=== PATIENT | female | born 2000 | race Hispanic/Latino ===

== ENCOUNTER 2018-08-30 18:00 | Inpatient (IN) | payer OTHER ==
[2018-08-30] MEDS ORDERED: Diphenoxylate HCl/Atropine Tablet PO PRN ×2 (19:00→19:17)
[2018-08-30] MEDS ORDERED: Carboprost 250 MCG/ML AMP IM PRN (19:17)
[2018-08-30] MEDS ORDERED: Ibuprofen 800 MG TAB PO PRN (19:17)
[2018-08-30] MEDS ORDERED: Methylergonovine 0.2 MG/ML VIAL IM PRN (19:17)
[2018-08-30] MEDS ORDERED: Ondansetron PF 4 MG/2 ML Vial IVP PRN (19:17)
[2018-08-30] MEDS ORDERED: hydrALAZINE 20 MG/ML VIAL SLOW IVP PRN (19:17)
[2018-08-30] MEDS ORDERED: Promethazine HCl 25 MG/ML VIAL IM PRN (19:17)
[2018-08-30] MEDS ORDERED: Lidocaine 1% (PF) 30 ML VIAL SC PRN (19:17)
[2018-08-30] MEDS ORDERED: Misoprostol 200 MCG TAB PR PRN (19:17)
[2018-08-30] MEDS ORDERED: HYDROcodone/Acetaminophen 5/325 mg Tablet PO PRN (19:17)
[2018-08-30] MEDS ORDERED: Zolpidem Tartrate 5 MG TAB PO PRN (19:17)
[2018-08-30] MEDS ORDERED: Acetaminophen 500 MG TAB PO PRN (19:17)
[2018-08-30] MEDS ORDERED: NS w/ Oxytocin 10 units 500 ML IV SCH (19:30)
[2018-08-30 19:31] VITALS: BMI 40.0
[2018-08-30] MEDS: Lactated Ringer's 1,000 ML IV SCH (20:02)
[2018-08-30] MEDS: Misoprostol 100 MCG TAB VAG SCH (20:02)
[2018-08-30 20:06] LABS: Hemoglobin 10.8 g/dL (12.0-16.0); Mean Corpuscular HGB CONC 33.2 g/dL (32.0-36.0); Mean Corpuscular Volume 84.3 fL (78.0-98.0); Mean Platelet Volume 9.3 fL (7.4-10.4); Platelet Count 252 thou/uL (130-400); RBC Distribution Width 15.7 % (11.5-14.5); Red Blood Cell (RBC) Count 3.85 mill/uL (4.00-5.20); White Blood Cell (WBC) Count 13.2 thou/uL (4.8-10.8)
[2018-08-30 20:39] LABS: Syphilis Antibody Nonreactive (Nonreactive); Syphilis Antibody Index 0.03 S/CO (<1.00 Non-Reactive)
[2018-08-30 22:58] LABS: HBSAg Index 0.26 S/CO (0-0.99); Hep B Surf Ag Non-Reactive S/CO (NonReactive)
[2018-08-31] MEDS: Misoprostol 100 MCG TAB VAG SCH ×4 (00:25→10:39)
--- NOTE | 2018-08-31 11:32 | PDOC.LDHP ---
Labor and Delivery H&P Chief complaint: scheduled induction (for A2GDM) HPI: 17yo at 38w 0d by LMP here for IOL 2/2 A2GDM, slightly uncontrolled. Fastings have still been elevated in 110-120s despite 2 medications. Received 4 doses cytotec overnight, states feels strong cramping. Current gestational age (weeks): 38 Due date: 09/14/18 Dating criteria: last menstrual period Grav: 1 Para: 0 OB History Details: anemia on iron supp Current complications: gestational diabetes (on glyburide and metformin) Abnormal US findings: No Past Medical History: Obesity Current medications: pre-prasanna vitamins, iron, other (glyburide 2.5mg q hs, metformin 1000 mg po q hs) Previous surgical history: none Allergies/Adverse Reactions: Allergies Allergy/AdvReac Type Severity Reaction Status Date / Time cefprozil [From Cefzil] Allergy Verified 08/30/18 19:23 Social history: none - Physical Exam Vital signs reviewed and normal: yes General: NAD Heart: RRR Lungs: CTAB Abdomen: gravid Extremeties: no edema FHT: category 1 [place] contractions every: 2-3min - Vaginal Exam cm dilated: 1 Effacement: 25% Station: -3 (very posterior and firm, difficult to reach, cook balloon attempted to be placed multiple times without success) - OB Labs Blood type: O RH: positive Antibody Screen: negative HIV: negative RPR: negative HEPSAg: negative 1 hour GCT: positive 3 hour GTT: positive for GDM GBS: negative Urine drug screen: negative Rubella: non-immune - Assessment L&D Assessment: medically indicated induction - Plan Plan: admit to L&D, cervical ripening, labor augmentation if indicated, informed consent obtained, anesthesia consult for pain management, other ( accuchecks for GDM, MMR prior to DC)
--- NOTE | 2018-08-31 13:07 | PDOC.LDPN ---
Labor & Delivery Progress Note - Subjective Subjective: painful contractions (10/13) - Objective Vital signs reviewed and normal: yes General: NAD Uterine fundus: non tender Dilation: 2 Effacement: 50% Station: -2 (cook balloon placed 60/60) FHT: category 1 [place] contractions every: 3min Plan: pitocin for augmentation (, increase cook balloon to 80/80 after 1 hr, tape to traction, pitocin 1x1)
[2018-08-31] MEDS: Butorphanol Tartrate 1 MG/ML VIAL SLOW IVP PRN ×3 (14:13→18:40)
[2018-08-31] MEDS: Lactated Ringer's 1,000 ML IV SCH (14:14)
[2018-09-01] MEDS ORDERED: Fentanyl 4 mcg/Bup 0.1% Cadd 100 ML ONE (00:27)
[2018-09-01] MEDS ORDERED: Acetaminophen 325 MG TAB PO PRN (01:09)
[2018-09-01] MEDS ORDERED: Promethazine HCl 25 MG/ML VIAL IM PRN ×2 (01:09→11:32)
[2018-09-01] MEDS ORDERED: Ondansetron PF 4 MG/2 ML Vial IVP PRN (01:09)
[2018-09-01] MEDS ORDERED: ePHEDrine/0.9% NaCl/PF SYRINGE 50 mg/10 ml SLOW IVP PRN (01:09)
[2018-09-01] MEDS ORDERED: Naloxone HCl 0.4 mg/ml Vial IVP PRN ×2 (01:09)
[2018-09-01] MEDS ORDERED: Lactated Ringer's 500 ML IV PRN (01:09)
[2018-09-01] MEDS ORDERED: diphenhydrAMINE 50 MG/ML VIAL IVP PRN (01:09)
[2018-09-01] MEDS ORDERED: Communication Order-Pharmacy FS SCH (01:15)
[2018-09-01] MEDS ORDERED: Fentanyl 4 mcg/Bupivacaine 0.1% Cassette 100 ML EPIDURAL SCH (01:15)
[2018-09-01] MEDS: Lactated Ringer's 1,000 ML IV SCH ×3 (03:26→11:54)
[2018-09-01] MEDS ORDERED: Misoprostol 200 MCG TAB ONE (07:39)
[2018-09-01] MEDS: NS / Oxytocin 40 units/1000ml 1,000 ML IV PRN ×2 (08:55→10:27)
--- NOTE | 2018-09-01 09:26 | PDOC.OPDEL ---
OB Operative/Delivery Note Delivery Dr/Surgeon: Joseph Assist: n/a Pre-Delivery Diagnosis: medically indicated induction (GDM, 38w, prolonged second stage, maternal exhaustion) Procedure/Post Delivery Dx: operative vaginal delivery (VE) Weeks gestation: 38 Anesthesia: epidural - Findings A Sex: female - Additional Findings/Plan Placenta delivered: spontaneous Repaired Obstetrical Laceration: episiotomy (2nd degree right mediolateral, repaired with 2-0 vicryl with excellent hemostasis) Estimated blood loss: 300 Compilations/Other Findings: VE performed after 3hr adequate maternal pushing due to maternal exhaustion true knot Post delivery plan: routine recovery
[2018-09-01] MEDS ORDERED: Azithromycin 500 MG in Sodium Chloride 0.9% 250 ML 250 ML IVPB SCH (10:00)
[2018-09-01] MEDS ORDERED: diphenhydrAMINE 25 MG CAP PO PRN (11:32)
[2018-09-01] MEDS ORDERED: Measles/Mumps/Rubella 10 MCG/0.5 ML VIAL SC ONE (11:32)
[2018-09-01] MEDS ORDERED: Bisacodyl 10 MG SUPP PR PRN (11:32)
[2018-09-01] MEDS ORDERED: Lanolin Ointment 7 GM TUBE TOP PRN (11:32)
[2018-09-01] MEDS ORDERED: Adacel (T-DAP) 0.5 ML SYRINGE IM ONE (11:32)
[2018-09-01] MEDS ORDERED: Preparation H Ointment 28 GM TUBE PR PRN (11:32)
[2018-09-01] MEDS ORDERED: Benzocaine-Menthol 82.5 ML CAN TOP PRN (11:32)
[2018-09-01] MEDS ORDERED: Milk Of Magnesia 30 ML UDCUP PO PRN (11:32)
[2018-09-01] MEDS ORDERED: hydrALAZINE 20 MG/ML VIAL SLOW IVP PRN (11:32)
[2018-09-01] MEDS ORDERED: HYDROcodone/Acetaminophen 5/325 mg Tablet PO PRN ×2 (11:32)
[2018-09-01] MEDS ORDERED: NS / Oxytocin 40 units/1000ml 1,000 ML IV SCH (11:32)
[2018-09-01] MEDS: Misoprostol 100 MCG TAB VAG SCH (11:53)
[2018-09-01] MEDS: Ondansetron PF 4 MG/2 ML Vial IVP PRN ×2 (13:00→19:50)
[2018-09-01] MEDS: Ibuprofen 800 MG TAB PO SCH ×2 (17:48→20:40)
[2018-09-01] MEDS: Ferrous Sulfate 325 MG TAB PO SCH (17:48)
[2018-09-01] MEDS ORDERED: Sodium Chloride 0.9% 10 ML ONE (19:47)
[2018-09-01] MEDS ORDERED: Ondansetron ODT 4 MG TAB PO PRN (20:08)
[2018-09-01] MEDS: Docusate Calcium (SURFAK) 240 MG CAP PO SCH (21:43)
[2018-09-02] MEDS: Ibuprofen 800 MG TAB PO SCH ×3 (05:04→21:14)
--- NOTE | 2018-09-02 06:34 | PDOC.PP ---
Post Progress Note Post Day #: 1 Subjective: Walking in room, feels good. Not very sore. PO intake tolerated: yes Flatus: yes Ambulation: yes Vital Signs (12 hours) Temp Pulse Resp BP BP Pulse Ox 09/02/18 05:00 98.2 F 80 18 97/57 L 09/02/18 00:00 98.4 F 83 20 97/50 L 09/01/18 20:00 97.3 F L 82 18 94/50 L 97 Weight Weight 219 lb - Physical Examination General: NAD Cardiovascular: no m/r/g Respiratory: clear to auscultation bilaterally Abdominal: + bowel sounds, lochia, no distention, appropriately TTP Extremities: negative homans (B) Neurological: no gross focal deficits Psychiatric: A&Ox3, normal affect Result Diagrams: 08/30/18 19:49 Additional Labs: Post Labs Blood Type O POSITIVE 08/30/18 19:49 Hep Bs Antigen Non-Reactive S/CO (NonReactive) 08/30/18 19:49 (1) Vacuum extractor delivery, delivered Code(s): O66.5 - ATTEMPTED APPLICATION OF VACUUM EXTRACTOR AND FORCEPS Status : Acute - Assessment/Plan A/P: PPD1...s/p vaccum doing well. care reviewed. Probable [facility] PPD2
[2018-09-02 08:19] LABS: Hemoglobin 8.6 g/dL (12.0-16.0); Mean Corpuscular Hemoglobin 28.2 pg (25.0-35.0); Mean Corpuscular Volume 85.6 fL (78.0-98.0); Mean Platelet Volume 9.2 fL (7.4-10.4); Platelet Count 214 thou/uL (130-400); RBC Distribution Width 16.1 % (11.5-14.5); Red Blood Cell (RBC) Count 3.06 mill/uL (4.00-5.20); White Blood Cell (WBC) Count 20.2 thou/uL (4.8-10.8)
[2018-09-02] MEDS: Ferrous Sulfate 325 MG TAB PO SCH ×2 (09:26→17:42)
[2018-09-02] MEDS: Docusate Calcium (SURFAK) 240 MG CAP PO SCH ×2 (09:26→21:14)
[2018-09-02] MEDS: Prenatal Vitamin 1 TAB PO SCH (09:27)
[2018-09-03] MEDS: Ibuprofen 800 MG TAB PO SCH ×2 (05:10→14:28)
[2018-09-03] MEDS: Ferrous Sulfate 325 MG TAB PO SCH (08:45)
[2018-09-03] MEDS: Prenatal Vitamin 1 TAB PO SCH (08:45)
[2018-09-03] MEDS: Docusate Calcium (SURFAK) 240 MG CAP PO SCH (08:46)
[2018-09-03 09:34] VITALS: BP 110/57; TEMP 97.8
--- NOTE | 2018-09-03 11:23 | PDOC.PP ---
Post Progress Note Post Day #: 2 PO intake tolerated: yes Flatus: yes Ambulation: yes Vital Signs (12 hours) Temp Pulse Resp BP Pulse Ox 09/03/18 07:55 97.8 F 79 14 110/57 L 97 Weight Weight 219 lb - Physical Examination General: NAD Respiratory: non-labored breathing Abdominal: no distention, appropriately TTP Fundus firm & at: umb Neurological: no gross focal deficits Psychiatric: normal affect Result Diagrams: 09/02/18 07:33 Additional Labs: Post Labs Blood Type O POSITIVE 08/30/18 19:49 Hep Bs Antigen Non-Reactive S/CO (NonReactive) 08/30/18 19:49 - Assessment/Plan PPD2 s/p VAVD VSSAF Doing well, mild anemia due to surgical blood loss, hgb 8.6, normal lochia, on iron and PNV, will cont on DC. Bottlefeeding Rh pos RNI- MMR prior to DC DC home FU 6 wk
== END 2018-09-03 18:00 | disposition home or self-care (01) | DRG 807 ==
LOC: L&D 18:49 → 3SW 09-01 12:19
PROVIDERS: ADMIT Student in an Organized Health Care Education/Training Program; ATTEND Student in an Organized Health Care Education/Training Program
PROC: 10D07Z6 Extraction of Products of Conception, Vacuum, Via Natural or Artificial Opening (ICD-10-PCS; principal; 2018-09-01)
PROC: 0KQM0ZZ Repair Perineum Muscle, Open Approach (ICD-10-PCS; 2018-09-01)
DX: O24.425 Gestational diabetes mellitus in childbirth, controlled by oral hypoglycemic drugs (principal); Z37.0 Single live birth; O75.81 Maternal exhaustion complicating labor and delivery; Z3A.38 38 weeks gestation of pregnancy; O99.02 Anemia complicating childbirth; D64.9 Anemia, unspecified; O99.214 Obesity complicating childbirth; E66.9 Obesity, unspecified; O69.2XX0 Labor and delivery complicated by other cord entanglement, with compression, not applicable or unspecified; O70.1 Second degree perineal laceration during delivery; O63.1 Prolonged second stage (of labor)
CPT/HCPCS: 36415; 36416; 51702; 82805; 85027; 86780; 86850; 86900; 86901; 87340; 88307; 90707; C1726; J0456; J0595; J0690; J2001; J2210; J2405; J2590; J3490; J7050; Q0162